=== PATIENT | female | born 1970 | race Two or more races ===

== ENCOUNTER 2024-08-16 09:46 | Emergency (ER) | payer BC, OTHER ==
[~2024-08-16] VITALS: Ht 152.4 cm; Wt 95.8 kg
[2024-08-16] MEDS ORDERED: NAP500T PO (10:41)
--- NOTE | 2024-08-16 10:42 | ED.PDOC ---
Musculoskeletal HPI Comments 53-year-old female presented to the urgent care complaining of right foot 4th toe swollen tender discolored she stubbed it yesterday Chief Complaint: Lower Extremity Time Seen by MD: 10:03 Reviewed Notes: Nurses Notes, Medications, Allergies Allergies: Coded Allergies: Penicillins (Verified Allergy, Unknown, 08/16/24) Home Meds Active Scripts Naproxen (NAPROSYN TABLET) 500 Mg Tb, 1 TAB PO BID for 10 Days, #20 TAB 1 Refill Prov:DENISSE PARADA MD 08/16/24 Information Source: Patient Mode of Arrival: Ambulatory Location: Right Extremity Location: Foot, Toe 4 Timing: Hours, Came on: Suddenly Severity: Moderate Able to Move Extremity: Yes Bear Weight: Limited Pain: Moderate Hand Dominance: Right Mechanism: Stubbing Circumstances: Spontaneous, Tripped Symptoms: Swelling, Pain DVT Risk Factors: NONE Last Tetanus: UTD Associated signs and symptoms: Swelling, Foot pain Past Medical History PAST MEDICAL HISTORY: Denies 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 History Family History Family History: Reviewed,noncontributory to illness, No family hx of Cancer, No family hx of DM, No family hx of Heart margarita, No family hx of HTN, No family hx ofKidney margarita, No family hx of Liver margarita, No family hx of Lung margarita, No family hx of Stroke Social History Smoker: Non-Smoker Alcohol: Occasionally Drugs: Denies Drug Use Lives In: Home Constitutional: denies: chills, diaphoresis, fatigue, fever, malaise, sweats, weakness, others EENTM: denies: blurred vision, double vision, ear bleeding, ear discharge, ear drainage, ear pain, ear ringing, eye pain, eye redness, hearing loss, mouth pain, mouth swelling, nasal discharge, nose bleeding, nose congestion, nose pain, photophobia, tearing, throat pain, throat swelling, voice changes, others Respiratory: denies: cough, hemoptysis, orthopnea, SOB at rest, shortness of breath, SOB with excertion, stridor, wheezing, others Cardiovascular: denies: chest pain, dizzy spells, diaphoresis, Dyspnea on exertion, edema, irregular heart beat, left arm pain, lightheadedness, palpitations, PND, syncope, others Gastrointestinal: denies: abdomen distended, abdominal pain, blood streaked bowels, constipated, diarrhea, dysphagia, difficulty swallowing, hematemesis, melena, nausea, poor appetite, poor fluid intake, rectal bleeding, rectal pain, vomiting, others Genitourinary: denies: abnormal vagina bleeding, burning, dyspareunia, dysuria, flank pain, frequency, hematuria, incontinence, pain, , vagina discharge, urgency, others Neurological: denies: dizziness, fainting, headache, left sided numbness, left sided weakness, numbness, paresthesia, pre-existing deficit, right sided numbness, right sided weakness, seizure, speech problems, tingling, tremors, weakness, others Musculoskeletal: reports: others (Swollen left 4th toe from injury); denies: back pain, gout, joint pain, joint swelling, muscle pain, muscle stiffness, neck pain Integumetry: denies: bruises, change in color, change in hair/nails, dryness, laceration, lesions, lumps, rash, wounds, others Allergic/Immunocompromised: denies: Difficulty Healing, Frequent Infections, Hives, Itching, others Hematologic/Lymphatic: denies: anemia, blood clots, easy bleeding, easy bruising, swollen glands, others Endocrine: denies: excessive hunger, excessive sweating, excessive thirst, excessive urination, flushing, intolerance to cold, intolerance to heat, unexplained weight gain, unexplained weight loss, others Psychiatric: denies: anxiety, bipolar disorder, depression, hopeless, panic disorder, schizophrenia, sleepless, suicidal, others All Other Systems: Reviewed and Negative Physical Exam General Appearance: Mild Distress, Obese HEENT: Normal ENT Inspection, Pharynx Normal, TMs Normal Neck: Full Range of Motion, Non-Tender, Normal, Normal Inspection Respiratory: Chest Non-Tender, Lungs Clear, No Accessory Muscle Use, No Respiratory Distress, Normal Breath Sounds Cardiovascular: No Edema, No JVD, No Murmur, No Gallop, Normal Peripheral Pulses, Regular Rate/Rhythm Breast Exam: Deferred Gastrointestinal: No Organomegaly, Non Tender, No Pulsatile Mass, Normal Bowel Sounds, Soft Genitalia: Deferred Pelvic: Deferred Rectal: Deferred Extremities: No calf tenderness, Normal capillary refill, Normal inspection, Normal range of motion, Non-tender, No pedal edema Musculoskeletal : Location: Right Extremity Location: Foot, Toe 4 Apperance: Swelling, Limited ROM, Tenderness: Moderate, Other Neurologic: Alert, 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 Was a procedure done?: No Differential Diagnosis EXT Differential Diagnosis: Fracture, Sprain, Contusion X-Ray, Labs, Meds, VS Vital Signs Date Time Temp Pulse Resp B/P (MAP) Pulse Ox O2 Delivery O2 Flow Rate FiO2 08/16/24 11:22 88 16 98 Room Air 08/16/24 11:22 98.7 82 16 132/86 (101) 98 98.7 08/16/24 09:54 97.7 87 18 129/81 (97) 98 97.7 X-Ray, Labs, Meds, VS Comment Course in the [employer] uneventful X-ray to the 4th toe shows transverse fracture proximal phalanx Treatment patient will have the 3rd 4th and 5th toe taped Patient will be discharged home to use local heat or ice Time of 1ST Reevaluation: 10:37 Reevaluation 1ST: Unchanged Consultation: PCP Patient Education/Counseling: Diagnosis, Treatment, Prognosis, Need For Follow Up Family Education/Counseling: Diagnosis, Treatment, Prognosis, Need For Follow Up, No Family Present Departure 1 Departure Time of Disposition: 10:38 Impression: Primary Impression: Fracture of fourth toe, right, closed Qualified Codes: S92.501A - Displaced unspecified fracture of right lesser toe(s), initial encounter for closed fracture Disposition: 01 HOME / SELF CARE / HOMELESS Condition: Fair Additional Instructions: For the next day or two then heat if needed e-Prescriptions Naproxen (NAPROSYN TABLET) 500 Mg Tb 1 TAB PO BID for 10 Days, #20 TAB 1 Refill Prov: DENISSE PARADA MD 08/16/24 Discharged With: Self Critical Care Note Critical Care Time?: No Stability Stability form required: No Heart Score Heart Score: Heart Score Response (Comments) Value History N/A 0 EKG N/A 0 Age 45-64 1 Risk Factors No known risk factors 0 Troponin N/A 0 Total 1 DENISSE PARADA MD Aug 16, 2024 10:42
--- NOTE | 2024-08-16 11:11 | DVH ---
EXAM: XY R FOOT 3 VIEW XRAY HISTORY: toe injury COMPARISON: None TECHNIQUE: Three views of the right foot were performed. FINDINGS: Age-indeterminate fracture through the 4th proximal phalanx. No dislocation. IMPRESSION: 1. Age-indeterminate fracture through the 4th proximal phalanx. No dislocation.
[2024-08-16 11:22] VITALS: BP 132/86; PULSE 88; RESP 16; TEMP 98.7; O2SAT 98
== END 2024-08-16 11:25 | disposition home or self-care (01) ==
LOC: ER 09:46
DX: S92.511A Displaced fracture of proximal phalanx of right lesser toe(s), initial encounter for closed fracture (principal); Z88.0 Allergy status to penicillin; Z98.51 Tubal ligation status; X58.XXXA Exposure to other specified factors, initial encounter; Y93.89 Activity, other specified; Y92.89 Other specified places as the place of occurrence of the external cause; Y99.8 Other external cause status
CPT/HCPCS: 73630